=== PATIENT | female | born 1955 | race Caucasian/White ===

== ENCOUNTER 2017-03-26 13:27 | Emergency (ER) | payer OTHER ==
--- NOTE | 2017-03-26 14:03 | CPEKG ---
Heart Rate: 89 RR Interval: 674 QRSD Interval: 84 QT Interval: 396 QTC Interval: 482 QRS [place]: 91 T Wave [place]: -30 EKG Severity - ABNORMAL ECG - EKG Impression: ATRIAL FIBRILLATION, V-RATE 71-105 EKG Impression: RIGHT AXIS DEVIATION Electronically Signed By: Fuad Jain 26-Mar-2017 15:37:08
[2017-03-26 14:17] LABS: % IMMATURE GRANULYOCYTES 0.4 % (0.0-1.1); ABSOLUTE IMMATURE GRANULOCYTES 0.04 10^3/uL (0.00-0.10); ADD DIFF? NO; ADD MORPH? NO; ADD SCAN? NO; ATYPICAL LYMPHOCYTE FLAG 0 (0-99); FRAGMENT RBC FLAG 0 (0-99); HEMATOCRIT 46.2 % (38.0-47.0); HEMOGLOBIN 15.7 g/dL (12.6-16.3); LEFT SHIFT FLG 0 (0-99); LIPEMIA HEMOLYSIS FLAG 90 (0-99); MEAN CELL HEMOGLOBIN 28.7 pg (27.9-34.1); MEAN CELL VOLUME 84.5 fL (81.5-99.8); MEAN PLATELET VOLUME 9.9 fL (8.7-11.7); PLATELET CLUMPS FLAG 0 (0-99); PLATELET COUNT 241 10^3/uL (150-400); RED BLOOD CELL COUNT 5.47 10^6/uL (4.18-5.33); RED CELL DISTRIBUTION WIDTH 13.2 % (11.5-15.2)
[2017-03-26 14:34] LABS: ANION GAP 15 mEq/L (8-16); CALCIUM 9.5 mg/dL (8.5-10.4); CARBON DIOXIDE 23 mEq/l (22-31); CHLORIDE 105 mEq/L (97-110); CREATININE 0.6 mg/dL (0.6-1.0); GLOMERULAR FILTRATION RATE > 60; GLUCOSE 90 mg/dL (70-100); POTASSIUM 4.4 mEq/L (3.5-5.2); SODIUM 143 mEq/L (134-144)
--- NOTE | 2017-03-26 14:42 | CPEKG ---
Heart Rate: 74 RR Interval: 811 QRSD Interval: 82 QT Interval: 396 QTC Interval: 440 QRS [place]: 86 T Wave [place]: -5 EKG Severity - ABNORMAL ECG - EKG Impression: ATRIAL FIBRILLATION, V-RATE 58-97 EKG Impression: BORDERLINE RIGHT AXIS DEVIATION EKG Impression: BORDERLINE T ABNORMALITIES, INFERIOR LEADS Electronically Signed By: Fuad Jain 26-Mar-2017 15:36:58
[2017-03-26 14:47] LABS: TROPONIN I < 0.012 ng/mL (0-0.034)
[2017-03-26] MEDS ORDERED: ONDANSETRON 4 MG/2 ML VIAL IVP ONE (15:21)
[2017-03-26] MEDS ORDERED: MAG HYDROX/AL HYDROX/SIMETH 30 ML UDCUP PO ONE (15:22)
--- NOTE | 2017-03-26 15:53 | UCPHY ---
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 INCREASED FATIGUED, DENIES SHORTNESS OF BREATH OR CHEST PAIN Time Seen by Provider: 03/26/17 13:55 HPI/ROS: This patient presents with significant hypertension-190 of 140 at home with associated headache that is moderate diffuse for 3 days. She has associated fatigue. She attributes her hypertension to social stressors. She reports compliance with her antihypertensives-Toprol XL 50 mg once daily-takes in the evening and losartan 50 mg once a day in the morning. She denies any other focal symptoms except anxiety. ROS: No fevers. Fatigue noted as per HPI. HEENT: No complaints neuro: Generalized moderate headache similar to previous headaches. No pulsatile headache. She denies any numbness tingling or focal weakness. Pulmonary: No dyspnea. No cough. Cardiovascular: She reports no racing heart. She denies any lower extremity swelling. Integumentary: No skin rash. 10 point ROS is otherwise negative. Source: Patient, Family (Her also provides history.) Exam Limitations: No limitations - Medical/Surgical History PMH: Atrial fibrillation. She had a Maze procedure by Dr. lavonne cox-surgical ablation with clipping of the atrial appendage. She also had an ablation by Dr. Christianson She is not taking any blood thinners at this time. She reports that she has having difficulty with her insurance company to [facility]. She did not tolerate Pradaxa. She did not tolerate Coumadin. Other PMH: LYMES DX, MS, AFIB, CARDIAC ABLATIONS, FIBROMYALGIA - Family History Significant Family History: No pertinent family hx - Social History Smoking Status: Current some day smoker Alcohol Use: Occasionally Drug Use: None - Physical Exam Exam: General Appearance: Alert, no distress. Eyes: Pupils equal and round no pallor or injection. ENT, Mouth: Mucous membranes moist. No cranial tenderness. Respiratory: There are no retractions, lungs are clear to auscultation. Cardiovascular: Irregularly irregular. No murmur gallop or rub. Gastrointestinal: Abdomen is soft and nontender, no masses, bowel sounds normal. Neurological: GCS 15 with no focal deficits. Skin: Warm and dry, no rashes. Musculoskeletal: Neck is supple nontender. Extremities are symmetrical, full range of motion. Psychiatric: Mood and affect normal except for some anxiety DIFFERENTIAL DIAGNOSIS: After history and physical exam differential diagnosis was considered for hypertensive urgency the-for rule out end-organ injury/ hypertensive emergency, tension headache, doubt intracranial bleed, rule out cardiac injury Constitutional: Initial Vital Signs Temperature (C) 37.0 C 03/26/17 13:35 Heart Rate 93 03/26/17 13:35 Respiratory Rate 18 03/26/17 13:35 Blood Pressure 171/115 H 03/26/17 13:35 O2 Sat (%) 93 03/26/17 13:35 O2 Delivery Mode Room Air O2 (L/minute) 2 Allergies/Adverse Reactions: warfarin sodium [From Coumadin] Allergy (Verified 03/26/17 13:38) zolpidem tartrate [From Ambien] Allergy (Verified 03/26/17 13:38) Home Medications: Medication Instructions Recorded Atovaquone [Mepron] 05/18/12 Diazepam [Valium 10 MG (RX)] mg PO DAILY 05/18/12 Digoxin [Lanoxin 0.125 mg (RX)] 0.125 mg PO DAILY 05/18/12 Metoprolol Succinate Xr [Toprol Xl 05/18/12 50 mg (RX)] Promethazine HCl [Phenergan] 25 mg IJ 05/18/12 oxyCODONE CR [Oxycontin] 10 mg PO BID 05/18/12 Fentanyl 03/26/17 Losartan Potassium 03/26/17 Medical Decision Making - Diagnostics EKG Interpretation: 12 lead EKG atrial fibrillation rate of 89 on this EKG performed at 2:[address] segments: Minimal anterior ST depression Overall assessment atrial fib, right axis deviation minimal T-wave abnormalities. Please refer to trace master for complete read 2nd EKG performed at 2:40 p.m. indication patient with brief chest pressure after antihypertensive-rule out interval change Atrial fib at 74 Intervals: Unchanged [place]: Unchanged ST segments: Resolution of anterolateral ST depression Overall assessment atrial fibrillation with no significant interval change except perhaps improvement and minimal initial ST depression ED Course/Re-evaluation: Clonidine p.o. with resolution of her hypertension. Her anxiety also resolved. She felt much improved. Discussion: Patient with hypertensive urgency without evidence of end-organ injury improved with clonidine I spoke with Sonia, mid-level practitioner with [facility] who recommends increase in her low losartan dose to 50 mg twice daily and continue with the current Toprol XL dose. She will follow up with [facility]. I discussed the lack of blood thinner this patient. She is less risk for thromboembolic phenomenon given the history of a Maze procedure but we agreed that she should start a baby aspirin daily pending Eliquis-insurance conflict Patient understands the plan to start baby aspirin and follow up with [facility]. She will increase her losartan dose - Data Points Laboratory Results: Laboratory Results 03/26/17 14:10 03/26/17 14:10 Medications Given: Discontinued Medications Al Hydroxide/Mg Hydroxide (Maalox Susp) 30 ml PO EDNOW ONE Stop: 03/26/17 15:23 Last Admin: 03/26/17 15:35 Dose: 30 ml Clonidine (Catapres) 0.2 mg PO EDNOW ONE Stop: 03/26/17 13:57 Last Admin: 03/26/17 13:59 Dose: 0.2 mg Ondansetron HCl (Zofran) 4 mg IVP EDNOW ONE Stop: 03/26/17 15:22 Last Admin: 03/26/17 15:35 Dose: 4 mg Departure - Departure Disposition: Home, Routine, Self-Care Clinical Impression: Hypertensive urgency Condition: Good Instructions: Hypertension (ED) Additional Instructions: Diagnosis: Hypertensive urgency Plan: Start taking 1 baby aspirin a day In addition, increase her losartan to 50 mg 2 times a day and continue other medications as prescribed. 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 Follow up with Cardiology for any ongoing hypertension despite the blood pressure medication change Go to the emergency department for any significant worsening despite treatment plan Referrals: AUDREY SHAH [Other] - As per Instructions - PQRS PQRS Measurement: SHERRILL
[2017-03-26 16:05] VITALS: RESP 16; TEMP 98.6
[2017-03-26 16:06] VITALS: BP 102/81; PULSE 65; O2SAT 92
== END 2017-03-26 16:00 | disposition home or self-care (01) ==
LOC: CED 13:27
DX: I10 Essential (primary) hypertension (principal); I48.91 Unspecified atrial fibrillation; R51 Headache; R53.83 Other fatigue; Z72.0 Tobacco use
CPT/HCPCS: 80048-PO; 84484-PO; 85025-PO; 96374-PO; G0463-PO; J2405

== ENCOUNTER → 2018-06-04 | Outpatient (CLI) | payer OTHER | LOC: BHLMT 10:30 | PROVIDERS: ATTEND Nurse Practitioner Family | DX: I48.2 Chronic atrial fibrillation (principal); I10 Essential (primary) hypertension; G89.4 Chronic pain syndrome; M79.7 Fibromyalgia; A69.20 Lyme disease, unspecified | CPT/HCPCS: 93005-PO ==